=== PATIENT | female | born 1940 | race Caucasian/White ===

== ENCOUNTER 2017-01-28 11:04 | Day surgery (SDC) | payer MEDICARE, OTHER ==
[~2017-01-28] VITALS: Ht 162.7 cm; Wt 63.0 kg
[2017-01-28] VITALS (8 sets, daily range): BP systolic 117–130; BP diastolic 70–95; PULSE 69–96; TEMP 97.3
[~2017-01-28 11:04] MED LIST: ASPIRIN 81M81 MG/TA2 PO; B-12 500 MCG; BETAPACE 120MG120 MG PO; BETAPACE 80MG80 MG PO; CALCIUM 500 SU500 MG PO; CALCIUM600 MG PO; CEPHALEXIN500 M1 PO; CITRACAL + D CA1 TAB PO; CO Q-1010 M1 PO; CO Q-1010 MG PO; CO Q-1050 MG PO; COUMADIN 5MG5 MG/TAB PO; EFFEXOR XR75 MG/CAP PO; FEROSUL325 MG PO; HYDROCORTISO28.35 GM TOP; HYDROXYURE500 MG/CAP PO; LASIX 20MG TABL20 MG PO; LOPRESSOR 225 MG/TAB PO; MULTI VITAMINS1 TAB PO; MULTIPLE VITAMI1 TA4 PO; MULTIVITAMIN FO1 CAP PO; NATURAL E400 IU PO; NATURE S BLEND PO; NEXIUM 40MG40 MG PO; NIASPAN 500MG500 MG PO; NORCO 325 MG-51 TAB PO; OCUVITE1 TA1 PO; OSTEO-BI-FLEX 21 TAB PO; PRADAXA 150MG150 MG PO; PRADAXA75 MG PO; PRAVACHOL 20MG20 MG PO; SINGULAIR 110 MG/TAB PO; SYNTHROID0.05 MG/TA PO; SYNTHROID0.075 MG/T PO; VITAMIN B COMPL1 SGL PO; VITAMIN C500 MG PO; ZESTRIL 5MG5 MG PO; ZYRTEC 10MG10 MG PO
[2017-01-28 11:41] LABS: HEMATOCRIT 37.4 % (37.0-47.0); HEMOGLOBIN 12.3 g/dl (12.5-16.0); MEAN CELL VOLUME 91 fl (80.0-100.0); MEAN CORPUSCULAR HEMOGLOBIN 30 pg (27.0-31.0); MEAN CORPUSCULAR HGB CONC 33 g/dl (33.0-37.0); MEAN PLATELET VOLUME 9.9 fl (7.4-10.4); PLATELET COUNT 443 K/mm3 (130-400); RED BLOOD COUNT 4.13 M/mm3 (4.10-5.30); REDCELL DISTRIBUTION WIDTH-CV 16.7 % (11.5-14.5); WHITE BLOOD COUNT 7.1 K/mm3 (4.8-10.8)
[2017-01-28 11:47] LABS: INR 2.3 (0.8-3.0); PROTHROMBIN TIME 26.5 SECONDS (9.7-12.8)
[2017-01-28 12:01] LABS: CALCIUM 9.9 mg/dL (8.4-10.2); CREATININE, serum 0.83 mg/dL (0.52-1.25)
[2017-01-28] MEDS ORDERED: K-TAB20 (12:06)
[2017-01-28] MEDS ORDERED: PROTONIX 40MG T40 MG PO (12:08)
[2017-01-28] MEDS ORDERED: IRON TABLETS325 MG PO (12:08)
[2017-01-28] MEDS ORDERED: VITAMIN D31000 I1 (12:09)
[2017-01-28] MEDS ORDERED: EFFEXOR-XR150 MG PO (12:10)
[2017-01-28] MEDS ORDERED: LASIX 40MG TABL40 MG (13:50)
== END 2017-01-28 14:45 | disposition home or self-care (01) ==
LOC: EUO 11:04
PROVIDERS: Internal Medicine Cardiovascular Disease
DX: I48.4 Atypical atrial flutter (principal); I27.2 Other secondary pulmonary hypertension; I25.10 Atherosclerotic heart disease of native coronary artery without angina pectoris; D64.9 Anemia, unspecified; J44.9 Chronic obstructive pulmonary disease, unspecified; I48.1 Persistent atrial fibrillation; E03.9 Hypothyroidism, unspecified; I10 Essential (primary) hypertension; Z90.49 Acquired absence of other specified parts of digestive tract; Z90.710 Acquired absence of both cervix and uterus; Z86.73 Personal history of transient ischemic attack (TIA), and cerebral infarction without residual deficits; Z95.2 Presence of prosthetic heart valve; Z79.01 Long term (current) use of anticoagulants; Z87.891 Personal history of nicotine dependence; Z95.0 Presence of cardiac pacemaker; Z82.49 Family history of ischemic heart disease and other diseases of the circulatory system
CPT/HCPCS: J2704; J7120